=== PATIENT | male | born 1960 | race Hispanic/Latino ===

== ENCOUNTER → 2024-12-18 | Outpatient (CLI) | payer BC ==
--- NOTE | 2024-12-18 17:19 | HMCIMG ---
CLINICAL INFORMATION Right knee pain, evaluate for internal derangement. COMPARISON None. TECHNIQUE Multiplanar multisequence MR imaging of the right knee without contrast FINDINGS LIGAMENTS Anterior cruciate ligament: Intact. Posterior cruciate ligament: Intact. Medial collateral ligament: Intact. Lateral collateral ligament: Intact. Posterolateral corner structures: Intact. MENISCI Medial meniscus: Multidirectional tear of the body. Mild peripheral extrusion. Lateral meniscus: Degenerative intrasubstance signal without acute surfacing tear. EXTENSOR MECHANISM The distal quadriceps and patellar tendons are intact. The patella is normally positioned within the femoral groove. There is no medial patellofemoral ligament or retinacular disruption. OSSEOUS AND ARTICULAR STRUCTURES Bones: No fracture, stress reaction, or osseous lesion is seen. Patellofemoral compartment: Mild cartilage thinning. Medial compartment: Mild cartilage thinning. Lateral compartment: Mild cartilage thinning. OTHER Fluid: No joint effusion. No Nuñez's cyst. Soft Tissues: Normal. IMPRESSION Multidirectional tear of the medial meniscus body with mild peripheral extrusion. Mild tricompartmental osteoarthritis. /[place]
== END | disposition home or self-care (01) ==
LOC: RAH 12:22
PROVIDERS: ATTEND Orthopaedic Surgery
DX: S83.241A Other tear of medial meniscus, current injury, right knee, initial encounter (principal); M17.11 Unilateral primary osteoarthritis, right knee; M25.861 Other specified joint disorders, right knee; M23.91 Unspecified internal derangement of right knee; X58.XXXA Exposure to other specified factors, initial encounter; Y93.89 Activity, other specified; Y92.89 Other specified places as the place of occurrence of the external cause; Y99.8 Other external cause status
CPT/HCPCS: 73721

== ENCOUNTER 2025-01-15 06:21 | Day surgery (SDC) | payer BC ==
[2025-01-14 14:39] LABS: IMMATURE GRANULOCYTE ABSOLUTE 0.03 K/uL (0-1); NUCLEATED RED BLOOD CELLS 0.0 % (0.0-0.19); PLATELET COUNT (AUTO) 234 K/uL (130-400); RED BLOOD CELL COUNT(AUTO) 5.04 MIL/uL (4.50-6.20); RED CELL DISTRIBUTION WIDTH 12.7 % (11.0-15.5); WHITE BLOOD COUNT (AUTO) 8.9 K/uL (4.8-10.8)
[2025-01-14 14:47] LABS: CREATININE 1.1 mg/dL (0.5-1.3); GLOMERULAR FILTR. RATE CALC 75.0 mL/min (>90); GLUCOSE,RANDOM 107.0 mg/dL (70-105); SODIUM SERUM 139.0 mmol/L (136-145); UREA NITROGEN, BLOOD 18.0 mg/dL (7-18)
[2025-01-14 15:14] VITALS: BP 139/80; PULSE 80; RESP 15; TEMP 97.9
[~2025-01-15] VITALS: Ht 162.6 cm; Wt 96.8 kg
[2025-01-15] VITALS (14 sets, daily range): BP systolic 98–138; BP diastolic 62–88; PULSE 69–98; RESP 15–18; TEMP 96.9–97.8
[~2025-01-15 06:21] MED LIST: DOXY20TA20 PO
[2025-01-15] MEDS: LACTATED RINGERS 1000ML 1,000 ML IV ONE (07:06)
[2025-01-15] MEDS ORDERED: FAMOTIDINE 20MG VIAL IV ONE (07:09)
[2025-01-15] MEDS ORDERED: SUGAMMADEX SODIUM 200 MG/2 ML VIAL IV ONE (07:10)
[2025-01-15] MEDS ORDERED: LIDOCAINE PF 100MG/5ML (2%) SYRINGE 5ML ONE (07:18)
[2025-01-15] MEDS ORDERED: GLYCOPYRROLATE 0.2 MG/ML 5 ML VIAL ONE (07:19)
[2025-01-15] MEDS ORDERED: SUCCINYLCHOLINE CHLORIDE 20 MG/ML 10 ML VIAL ONE (07:19)
[2025-01-15] MEDS ORDERED: NEOSTIGMINE METHYLSULFATE 1MG/ML IV ONE (07:19)
[2025-01-15] MEDS ORDERED: MIDAZOLAM HCL 1 MG/ML 2ML VIAL ONE (07:21)
[2025-01-15] MEDS ORDERED: ACET-2079 PO (08:56)
[2025-01-15] MEDS ORDERED: MELO-108 PO (08:56)
--- NOTE | 2025-01-15 09:04 | OP ---
Operative Note: DATE OF PROCEDURE: 01/15/25 SURGEON: DEMETRIO RIVERA MD ATTACHER: [Brittany Caballero CFA] ANESTHESIA: [General anesthesia] ANESTHESIOLOGIST/CARDIAC CATH TECHNICIAN: [Jorge Luis Jolly CRNA] PREOPERATIVE DIAGNOSIS: [Right knee medial meniscal tear, chondromalacia patellofemoral joint] POSTOPERATIVE DIAGNOSIS: [Right knee medial meniscal tear, grade 3/4 chond romalacia patellofemoral joint, grade two chondromalacia medial compartment] PROCEDURE: [Right knee arthroscopy, partial medial meniscectomy] ESTIMATED BLOOD LOSS: [Less than 10 mL] INDICATIONS: [64-year-old male with a history of pain to the right knee that has a longer responded to conservative treatment. The MRI shows the presence of a complex tear of the medial meniscus, as well as chondromalacia of the patellofemoral joint. The patient is brought to the operating room for arthroscopic partial meniscectomy, procedure that he understood, risks, benefits and possible complications and agreed signed the consent form] DESCRIPTION OF PROCEDURE: [After adequate general anesthesia was achieved the patient's right lower extremity was prepped and draped in the usual manner previous placement of the tourniquet in the proximal thigh. The extremity was elevated and exsanguinated with an Esmarch band and the tourniquet was inflated to 250 mmHg the Esmarch band been then removed. The leg was brought to the side of the bed with the knee in 90 degrees of flexion and 2 small incisions were made medial and lateral to the patella tendon at the joint line level through the skin followed by blunt dissection with a trocar penetrating into the joint. Through the lateral portal the arthroscopic cannula was inserted and then after the cannula was removed the scope was inserted in the sheath bringing the knee on the table in extension placing the scope in the suprapatellar area which was noted to be normal with a normal quadriceps tendon. The patellofemoral joint demonstrated degenerative changes including grade three chondromalacia of the patella mostly in the lateral compartment and grade 4 chondromalacia of the femoral trochlea. There were no loose fragments. The knee was then brought into flexion on the side of the bed and the scope follow into the medial compartment where immediately a large fragment of a torn meniscus was in view, and after valgus stress was done we were able to visualize the medial compartment and the tear of the meniscus was found to extend to the posterior horn. With the use of the meniscal shaver as well as an trimmers we proceeded to remove the torn tissue leaving hook stable tissue removing all the debris. The articular surface of the tibia was noted to be showing signs of degeneration with a grade 3 chondromalacia. We then proceeded to bring the scope to the intercondylar notch noticing that the ACL and PCL were normal and then with a [id number] position of the knee we were able to visualize the lateral compartment which show normal characteristics of the meniscus and the articular surface. The arthroscope was then removed from the joint as well as the fluid and we then proceeded to close the incisions with #3-0 nylon simple stitches. A soft dressing was applied to cover the small incisions followed by application of an Carter bandage. The drapes were then removed after the tourniquet was deflated and the patient was transferred to the stretcher and then taken to recovery room for follow-up by anesthesia. There were no complications during the procedure.] DEMETRIO RIVERA MD Jan 15, 2025 09:04
--- NOTE | 2025-01-15 09:52 | NUR ---
POST-OP RECOVERY RIGHT KNEE DRESSING DRY AND INTACT. NO ACTIVE BLEEDING OR DRAINAGE NOTED. PATIENT CAN WIGGLE TOES. RIGHT KNEE WRAPPED.
== END 2025-01-15 10:23 | disposition home or self-care (01) ==
LOC: DAH 06:21
PROVIDERS: ATTEND Orthopaedic Surgery
DX: S83.231A Complex tear of medial meniscus, current injury, right knee, initial encounter (principal); M22.41 Chondromalacia patellae, right knee; X58.XXXA Exposure to other specified factors, initial encounter; Y93.89 Activity, other specified; Y92.89 Other specified places as the place of occurrence of the external cause; Y99.8 Other external cause status; Z79.82 Long term (current) use of aspirin; Z88.2 Allergy status to sulfonamides; Z88.8 Allergy status to other drugs, medicaments and biological substances; Z98.890 Other specified postprocedural states
CPT/HCPCS: 80048; 85025; 36415; 29881; A4223 ×2; A4663; J7120 ×2; A4649 ×3; J3490 ×3; J3010 ×2; J1100; J0330; J2003; J2250; J2704; J2405; J2710; J0690; A6223; A4215; A4222; A4221; A4216; A6450